=== PATIENT | female | born 1970 | race Caucasian/White ===

== ENCOUNTER 2022-01-24 07:53 | Emergency (ER) | payer BC ==
[2022-01-24] MEDS ORDERED: Albuterol/Ipratropium 3.0-0.5 MG/3 ML Neb Soln NEB ONE (08:23)
[2022-01-24] MEDS ORDERED: Furosemide 20 MG/2 ML VIAL IVPUSH ONE (08:32)
[2022-01-24 09:27] LABS: CORONAVIRUS COVID-19 NAA NEGATIVE (NEGATIVE); RESPIRATORY SYNCYTIAL VIR NAA NEGATIVE (NEGATIVE)
== END 2022-01-24 10:08 | disposition home or self-care (01) ==
LOC: DL.ED 07:53
DX: J81.0 Acute pulmonary edema (principal); B09 Unspecified viral infection characterized by skin and mucous membrane lesions; J06.9 Acute upper respiratory infection, unspecified; F17.210 Nicotine dependence, cigarettes, uncomplicated; Z88.1 Allergy status to other antibiotic agents; Z79.899 Other long term (current) drug therapy; Z20.822 Contact with and (suspected) exposure to COVID-19
CPT/HCPCS: 0241U; 87081; 87430; 94640; 96374; 99285; J1940; J7620-GY

== ENCOUNTER 2023-03-15 05:20 | Day surgery (SDC) | payer BC ==
[2023-03-15] MEDS ORDERED: Midazolam 1 MG/ML 2 ML SDV IV ONE ×7 (05:21→06:37)
[2023-03-15] MEDS ORDERED: fentaNYL 100 MCG/2 ML SDV IV ONE ×3 (05:21→06:28)
[2023-03-15] MEDS ORDERED: Dextrose 5%-0.45% NaCl 1,000 ML IV SCH (06:00)
[2023-03-15] MEDS ORDERED: Midazolam 1 MG/ML 2 ML SDV ONE (06:09)
[2023-03-15] MEDS ORDERED: fentaNYL 100 MCG/2 ML SDV ONE (06:09)
== END 2023-03-15 08:00 | disposition home or self-care (01) ==
LOC: DL.ENDO 05:20
PROVIDERS: ATTEND Internal Medicine Gastroenterology
DX: Z12.11 Encounter for screening for malignant neoplasm of colon (principal); K57.30 Diverticulosis of large intestine without perforation or abscess without bleeding; K21.9 Gastro-esophageal reflux disease without esophagitis; E66.09 Other obesity due to excess calories; E03.9 Hypothyroidism, unspecified; Z88.1 Allergy status to other antibiotic agents; F17.210 Nicotine dependence, cigarettes, uncomplicated; Z98.84 Bariatric surgery status; Z86.16 Personal history of COVID-19; Z68.33 Body mass index [BMI] 33.0-33.9, adult
CPT/HCPCS: J2250; J3010; J7042